=== PATIENT | female | born 1950 | race Caucasian/White ===

== ENCOUNTER → 2018-12-17 | Outpatient (CLI) | payer MEDICARE ==
[~2018-12-17] MED LIST: ABILIFY10 MG PO; BENZONATATE100 MG PO; CARVEDILOL25 MG PO; CINNAMON500 MG PO; DILTIAZEM 24HR240 M1 PO; FISH OIL 1,0001 EAC2 PO; FLUTICASONE PROP1 GM PO; GABAPENTIN100 MG PO; GLIMEPIRIDE1 MG PO; HYDROCODONE-HOMA5 ML PO; LISINOPRIL40 MG PO; LORATADINE10 MG PO; MELATONIN1 MG PO; METFORMIN HCL500 MG PO; MODAFINIL200 MG PO; PANTOPRAZOLE SO40 MG PO; PRISTIQ ER100 MG PO; SIMVASTATIN80 MG PO
== END ==
LOC: CARD 08:46
PROVIDERS: ATTEND Podiatrist
DX: E11.40 Type 2 diabetes mellitus with diabetic neuropathy, unspecified (principal); M79.672 Pain in left foot; M79.671 Pain in right foot
CPT/HCPCS: 93922; 93925